=== PATIENT | male | born 1995 | race Caucasian/White ===

== ENCOUNTER 2019-06-09 14:09 | Emergency (ER) | payer SELFPAY ==
[2019-06-09] MEDS ORDERED: Ibuprofen 600 MG Tab PO ONE (14:39)
[2019-06-09] MEDS ORDERED: Diphtheria,Pertussis(Acell),Tetanus Vaccine 0.5 ML Syringe IM ONE (14:43)
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
--- NOTE | 2019-06-09 15:33 | CR ---
Left forearm: Two views of the left forearm were obtained. Comparison: No prior left forearm exam. No fracture or other bony abnormality is appreciated. Impression: 1. No abnormality is identified on two-view left forearm study. Diagnostic code #1 This report was dictated in [place] Standard Time
--- NOTE | 2019-06-09 15:33 | CR ---
Left hand: Four views centered to the left hand were obtained. Comparison: No previous hand exam. Joint spaces are maintained. No acute fracture, dislocation or other bony abnormality is seen. Impression: 1. No abnormality is appreciated on left hand exam. Diagnostic code #1 This report was dictated in [place] Standard Time
== END 2019-06-09 15:49 | disposition home or self-care (01) ==
LOC: JD.ED 14:09
DX: S60.042A Contusion of left ring finger without damage to nail, initial encounter (principal); S60.032A Contusion of left middle finger without damage to nail, initial encounter; S40.812A Abrasion of left upper arm, initial encounter; S80.812A Abrasion, left lower leg, initial encounter; Z23 Encounter for immunization; V19.9XXA Pedal cyclist (driver) (passenger) injured in unspecified traffic accident, initial encounter
CPT/HCPCS: 73090; 73130; 90471; 90715; 99283; A9270

== ENCOUNTER 2021-01-09 02:16 | Emergency (ER) | payer BC ==
[2021-01-09] MEDS ORDERED: Lidocaine 1% 10 ML MDV INJECT ONE (03:19)
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
[2021-01-09 05:09] LABS: ACETAMINOPHEN 0 ug/mL (10-30)
== END 2021-01-09 09:52 | disposition home or self-care (01) ==
LOC: JD.ED 02:16
DX: S61.512A Laceration without foreign body of left wrist, initial encounter (principal); S51.812A Laceration without foreign body of left forearm, initial encounter; F32.9 Major depressive disorder, single episode, unspecified; Z20.822 Contact with and (suspected) exposure to COVID-19; X78.1XXA Intentional self-harm by knife, initial encounter
CPT/HCPCS: 12002; 36415; 80053; 80143; 80179; 80306; 80307; 85025; 99284-25; U0002